=== PATIENT | female | born 1950 | race Hispanic/Latino ===

== ENCOUNTER 2017-10-22 09:05 | Emergency (ER) | payer OTHER ==
[~2017-10-22] VITALS: Ht 152.4 cm; Wt 58.4 kg
[~2017-10-22 09:05] MED LIST: MOBIC7.5 MG PO; NO HOME MEDS; ULTRAM50 MG PO
[2017-10-22 10:00] LABS: BASOPHIL (%) 0.2 % (0-1); EOSINOPHIL (%) 1.6 % (0-5); EOSINOPHIL COUNT 0.1 K/uL (0-0.3); HEMATOCRIT 39.1 % (36.0-46.0); HEMOGLOBIN 13.1 G/DL (11.9-15.5); IMMATURE GRANULOCYTE (%) 0.5 % (0.0-0.7); LYMPHOCYTE (%) 20.9 % (15-42); LYMPHOCYTE COUNT 1.3 K/uL (1.0-2.8); MCH 29.4 PG (29.0-34.0); MCHC 33.5 G/DL (30.0-36.0); MCV 87.7 FL (83-99); MONOCYTE COUNT 0.5 K/uL (0-0.8); NEUTROPHIL (%) 68.8 % (45-76); NEUTROPHIL COUNT 4.3 K/uL (1.8-6.4); PLATELET COUNT 153 K/uL (156-360); RBC DIS.WIDTH-CV 13.2 % (11.8-14.6); RBC DIS.WIDTH-SD 42.3 % (39-53); RED BLOOD COUNT 4.46 M/uL (3.80-5.20); WHITE BLOOD COUNT 6.2 K/uL (4.1-10.2)
[2017-10-22 10:08] LABS: CHLORIDE 108 mEq/L (99-109); POTASSIUM 4.1 mEq/L (3.7-5.4); SODIUM 140 mEq/L (136-147)
[2017-10-22 10:10] LABS: GLUCOSE 110 mg/dL (70-99)
[2017-10-22 10:14] LABS: CREATININE 0.7 mg/dL (0.6-1.3); GFR ESTIMATE (CALCULATED) > 59 mL/min/
[2017-10-22 10:15] LABS: UREA NITROGEN (BUN) 14 mg/dL (9-23)
[2017-10-22] MEDS ORDERED: PERCOCET 5/31 TABLET PO (10:35)
[2017-10-22] MEDS ORDERED: VALTREX1000 MG PO (10:35)
[2017-10-22 11:05] VITALS: BP 192/88
== END 2017-10-22 11:08 | disposition home or self-care (01) ==
LOC: EME 09:05
PROVIDERS: Emergency Medicine
DX: B02.9 Zoster without complications (principal); R07.89 Other chest pain; R94.31 Abnormal electrocardiogram [ECG] [EKG]; Z98.890 Other specified postprocedural states
CPT/HCPCS: 71045; 80048; 85025; 85379; 93005; 99281; 99284